=== PATIENT | female | born 1945 | race Two or more races ===

== ENCOUNTER 2022-11-05 17:30 | Emergency (ER) | payer OTHER ==
[~2022-11-05] VITALS: Ht 160 cm; Wt 79.4 kg
[2022-11-05] MEDS ORDERED: LIPOFEN150 MG PO (18:07)
[2022-11-05] MEDS ORDERED: LOSARTAN POTASS25 MG PO (18:07)
[2022-11-05] MEDS ORDERED: LIPITOR20 MG PO (18:08)
== END 2022-11-05 23:36 | disposition home or self-care (01) ==
LOC: ER 17:30
PROVIDERS: General Practice
DX: K29.70 Gastritis, unspecified, without bleeding (principal); R10.9 Unspecified abdominal pain; I10 Essential (primary) hypertension
CPT/HCPCS: 36415; 96365; 99282; J3490